=== PATIENT | male | born 1985 | race Caucasian/White ===

== ENCOUNTER → 2021-06-09 | Day surgery (SDC) | payer OTHER ==
[~2021-06-09] VITALS: Ht 172.7 cm; Wt 90.7 kg
[~2021-06-09] MED LIST: ACETAMINOPHEN500 M1 PO; BENTYL10 MG PO; IBUPROFEN800 MG PO; PRILOSEC20 MG PO; PRINIVIL20 MG PO; ZOFRAN4 MG PO
[2021-06-09 03:02] LABS: BASOPHIL 0.2 % (0-2); EOSINOPHIL 1.9 % (0-5); HCT 47.9 % (42.0-52.0); HGB 17.2 g/dl (13.2-18.0); LYMPHOCYTE 15.6 % (15-48); MCH 32.2 pg (25.0-31.0); MCHC 35.9 g/dL (32.0-36.0); MCV 89.7 fL (78.0-100.0); MONOCYTE 9.3 % (0-12); MPV 10.1 fL (6.0-9.5); NEUTROPHIL 72.7 % (41-80); NRBC 0; PLT 210 K/uL (150-400); RBC 5.34 M/uL (4.70-6.00); RDW 12.4 % (11.5-14.0); WBC 11.2 K/uL (4.0-10.5)
[2021-06-09 03:15] LABS: ALBUMIN 4.3 g/dL (3.4-5.0); BILIRUBIN - TOTAL 1.1 mg/dL (0.2-1.0); BUN/CREAT RATIO (CALC) 15.6 RATIO; CREATININE 1.28 mg/dL (0.67-1.17); GLOBULIN (CALCULATION) 3.1 g/dL; POTASSIUM 4.4 mmol/L (3.5-5.1); TOTAL PROTEIN 7.4 g/dL (6.4-8.2)
[2021-06-09 03:33] LABS: INR 1.06 (0.9-1.2); PROTHROMBIN TIME 13.2 SECONDS (11.8-13.4); PTT 30.4 SECONDS (24.4-34.7)
[2021-06-09 04:38] LABS: BILIRUBIN NEGATIVE (NEGATIVE); BLOOD NEGATIVE Ery/uL (NEGATIVE); CLARITY CLEAR (CLEAR); GLUCOSE (U) NORMAL (NORMAL); LEUKOCYTES NEGATIVE Leu/uL (NEGATIVE); NITRITE NEGATIVE (NEGATIVE); PROTEIN NEGATIVE (NEGATIVE); SPECIFIC GRAVITY 1.015 (1.001-1.030); UROBILINOGEN 0.2 mg/dL (0.2-1.0); pH 5.5 (5.0-9.0)
[2021-06-09 04:40] LABS: COLOR STRAW (YELLOW)
== END | disposition home or self-care (01) ==
LOC: FER 02:39 → FOR 05:05 → FAS 05:05
PROVIDERS: Emergency Medicine
DX: K35.33 Acute appendicitis with perforation, localized peritonitis, and gangrene, with abscess (principal); I10 Essential (primary) hypertension; K21.9 Gastro-esophageal reflux disease without esophagitis; Z20.822 Contact with and (suspected) exposure to COVID-19; Z87.891 Personal history of nicotine dependence; Z88.1 Allergy status to other antibiotic agents
CPT/HCPCS: 36415; 80053; 81003; 83690; 84145; 85025; 85610; 85730; 86900; 86901; J1100; J1170; J1644; J2250; J2405; J2543; J2704; J2710; J3010; J3480; J7030; J7120; Q9967; U0002